=== PATIENT | female | born 1990 | race Caucasian/White ===

== ENCOUNTER 2016-12-09 11:45 | Emergency (ER) | payer OTHER ==
[2016-12-09 11:53] VITALS: BP 141/65
--- NOTE | 2016-12-09 12:00 | UC ---
UC General HPI - HPI Summary HPI Summary: complaint of right and left toe pain and redness that started 3 days ago went for pedicure and afterwards toes started to turn red has been using epsom salts and salt poultice pain is a constant throbbing pain took some ibuprofen last night without relief. - History of Current Complaint Chief Complaint: [facility] Stated Complaint: RIGHT BIG TOE PAIN Time Seen by Provider: 12/09/16 11:51 Hx Obtained From: Patient - Allergy/Home Medications Allergies/Adverse Reactions: Allergies Allergy/AdvReac Type Severity Reaction Status Date / Time No Known Allergies Allergy Verified 12/09/16 11:53 PMH/Surg Hx/FS Hx/Imm Hx Previously Healthy: Yes - Surgical History Surgical History: Yes Surgery Procedure, Year, and Place: 2014 and 2016 - Family History Known Family History: Negative: Cardiac Disease, Hypertension, Diabetes - Social History Occupation: Employed Full-time Lives: With Family Alcohol Use: Occasionally Substance Use Type: None Smoking Status (MU): Never Smoked Tobacco Review of Systems Constitutional: Negative Skin: Other - red toes Eyes: Negative ENT: Negative Respiratory: Negative Cardiovascular: Negative Gastrointestinal: Negative Genitourinary: Negative Motor: Negative Neurovascular: Negative Musculoskeletal: Negative Neurological: Negative Psychological: Negative All Other Systems Reviewed And Are Negative: Yes Physical Exam Triage Information Reviewed: Yes Appearance: No Pain Distress, Well-Nourished Vital Signs: Initial Vital Signs Temp 98.4 F 12/09/16 11:47 Pulse 88 12/09/16 11:47 Resp 16 12/09/16 11:47 BP 141/65 12/09/16 11:47 Pulse Ox 100 12/09/16 11:47 Vital Signs Reviewed: Yes Eyes: Positive: Conjunctiva Clear ENT: Positive: Pharynx normal, TMs normal Neck: Positive: No Lymphadenopathy Respiratory: Positive: Lungs clear, Normal breath sounds, No respiratory distress, No accessory muscle use Cardiovascular: Positive: RRR, No Murmur, Pulses Normal Abdomen Description: Positive: Nontender, Soft Bowel Sounds: Positive: Present Musculoskeletal Exam: Normal Neurological Exam: Normal Psychological Exam: Normal Skin Exam: Other - both great toes edeam and ertythema on the medial sides of toenails no induration Course/Dx - Differential Dx - Multi-Symptom Differential Diagnoses: Other - cellulits Provider Diagnoses: cellulitis- both great toes. elevated blood pressure Discharge - Discharge Plan Condition: Stable Disposition: HOME Patient Education Materials: Cellulitis (ED) Referrals: [facility] [Outside] Additional Instructions: Please take antibiotic as directed Increase fluids and rest Take acetaminophen or ibuprofen for fever or pain Please review your discharge instructions. If your symptoms do not improve please call your primary care provider or return to urgent care. Your blood pressure is elevated. Please contact your primary care provider within 1 day -4 weeks for further evaluation.
== END 2016-12-09 12:20 | disposition home or self-care (01) ==
LOC: UCCORT 11:45
DX: L03.032 Cellulitis of left toe (principal); L03.031 Cellulitis of right toe; R03.0 Elevated blood-pressure reading, without diagnosis of hypertension
CPT/HCPCS: 99202; G0463

== ENCOUNTER 2019-02-01 13:17 | Emergency (ER) | payer OTHER ==
[2019-02-01 13:35] VITALS: BP 123/81
--- NOTE | 2019-02-01 14:08 | UC ---
Shortness of Breath HPI - HPI Summary HPI Summary: shortness of breath x 2 days cannot take a deep breath , no cold symptoms, no fever, no wheezing , no cough had chest pain this morning used albuterol inhaler this morning with no improvement pt. dose not smoke, no recent travel , no calf pain - History of Current Complaint Chief Complaint: [facility] Stated Complaint: SHORTNESS OF BREATH Time Seen by Provider: 02/01/19 13:37 Hx Obtained From: Patient Hx Last Menstrual Period: "two months ago ... typical" Nexplanon ?: No Onset/Duration: Gradual Onset, Lasting Days - 2, Still Present Timing: Constant Current Severity: Moderate Dyspnea At: Exertion Aggravating Factors: Deep Breaths Alleviating Factors: Nothing Associated Signs & Symptoms: Negative: Cough (Productive), Cough (Nonproductive) , Cough (Bloody Sputum), Wheezing, Chest Pain w/Cough, Chest Pain Unrelated to Cough, Fever, Chills, Diaphoresis, Nasal Congestion, Dizzy, Calf Pain/Swelling, Edema - Allergy/Home Medications Allergies/Adverse Reactions: Allergies Allergy/AdvReac Type Severity Reaction Status Date / Time No Known Allergies Allergy Verified 02/01/19 13:25 Home Medications: Home Medications Albuterol 2.5MG/3ML (0.083%)* [Ventolin 2.5 MG/3 ML NEB.DALE*] 2.5 mg INH ONCE [History Confirmed 02/01/19] Etonogestrel [Nexplanon] 68 mg IMPLANT ONCE 02/01/19 [History Confirmed 02/01/19 ] Hyoscyamine ER (NF) [Levbid (NF)] 0.375 mg PO BID 02/01/19 [History Confirmed ] Minocycline (NF) 100 mg PO BID 02/01/19 [History Confirmed 02/01/19] Venlafaxine EXT RELEASE CAP* [Effexor Xr CAP*] 75 mg PO DAILY 02/01/19 [History Confirmed 02/01/19] traZODone TAB* [Desyrel TAB*] 50 mg PO BEDTIME 02/01/19 [History Confirmed 02/01] PMH/Surg Hx/FS Hx/Imm Hx Psychological History: Anxiety - Surgical History Surgical History: Yes Surgery Procedure, Year, and Place: , 2015 2014 - Family History Known Family History: Negative: Cardiac Disease, Hypertension, Diabetes - Social History Alcohol Use: Occasionally Substance Use Type: None Smoking Status (MU): Never Smoked Tobacco Review of Systems All Other Systems Reviewed And Are Negative: Yes Constitutional: Positive: Negative Skin: Positive: Negative Eyes: Positive: Negative ENT: Positive: Negative Respiratory: Positive: Shortness Of Breath Cardiovascular: Positive: Negative Gastrointestinal: Positive: Negative Is Patient Immunocompromised?: No Physical Exam Triage Information Reviewed: Yes Appearance: Well-Appearing, No Pain Distress, Well-Nourished Vital Signs: Initial Vital Signs Temp 98.8 F 02/01/19 13:21 Pulse 87 02/01/19 13:21 Resp 22 02/01/19 13:21 BP 123/81 02/01/19 13:21 Pulse Ox 100 02/01/19 13:21 Vital Signs Reviewed: Yes Eye Exam: Normal Eyes: Positive: Conjunctiva Clear ENT: Positive: Normal ENT inspection, Hearing grossly normal, Pharynx normal Neck: Positive: Supple, Nontender, No Lymphadenopathy Respiratory: Positive: Chest non-tender, Lungs clear, Normal breath sounds, No accessory muscle use, Respiratory distress. Negative: Decreased breath sounds, Accessory muscle use, Wheezing Cardiovascular: Positive: RRR, No Murmur, Pulses Normal Abdominal Exam: Normal Abdomen Description: Positive: Nontender, Soft. Negative: CVA Tenderness (R), CVA Tenderness (L), Distended, Guarding Bowel Sounds: Positive: Present Skin Exam: Normal Diagnostics - Radiology No standard instances Radiology Interpretation Completed By: Radiologist Summary of Radiographic Findings: IMPRESSION chest xray. NO ACTIVE CARDIOPULMONARY DISEASE. Shortness of Breath Dx - Differential Dx/Diagnosis Provider Diagnosis: Shortness of breath Discharge - Sign-Out/Discharge Documenting (check all that apply): Patient Departure All imaging exams completed and their final reports reviewed: Yes - Discharge Plan Condition: Stable Disposition: HOME Prescriptions: predniSONE TAB* [Deltasone 20 MG TAB*] 40 mg PO DAILY #10 tab Patient Education Materials: Shortness of Breath (ED) Referrals: No Primary Care Phys,NOPCP [Primary Care Provider] - 2 Days - Billing Disposition and Condition Condition: STABLE Disposition: Home
== END 2019-02-01 14:19 | disposition home or self-care (01) ==
LOC: UCCORT 13:17
DX: R06.02 Shortness of breath (principal); F41.9 Anxiety disorder, unspecified
CPT/HCPCS: 71046; 93005; 99212; G0463